=== PATIENT | female | born 1970 | race Caucasian/White ===

== ENCOUNTER 2017-04-22 10:15 | Emergency (ER) | payer OTHER ==
[~2017-04-22] VITALS: Ht 162.6 cm; Wt 61.2 kg
[~2017-04-22 10:15] MED LIST: LEVOTHYROXINE125 MCG PO; MELOXICAM15 MG PO; TRAMADOL HCL50 MG PO
== END 2017-04-22 12:20 | disposition home or self-care (01) ==
LOC: ED 10:15
DX: S00.83XA Contusion of other part of head, initial encounter (principal); S00.211A Abrasion of right eyelid and periocular area, initial encounter; Z88.6 Allergy status to analgesic agent; Z79.899 Other long term (current) drug therapy; Z87.891 Personal history of nicotine dependence; Z90.710 Acquired absence of both cervix and uterus; W01.198A Fall on same level from slipping, tripping and stumbling with subsequent striking against other object, initial encounter
CPT/HCPCS: 70450; 99284